=== PATIENT | male | born 1990 | race Caucasian/White ===

== ENCOUNTER 2018-08-07 16:40 | Emergency (ER) | payer MEDICAID ==
[2018-08-07] MEDS ORDERED: ALBUTEROL 3 ML DEYVIAL IH ONE ×2 (17:31→18:30)
[2018-08-07] MEDS ORDERED: predniSONE 20 MG TAB PO ONE (17:31)
--- NOTE | 2018-08-07 18:23 | EDPHY ---
H & P Stated Complaint: SOB, wheezing, body aches, chills Time Seen by Provider: 08/07/18 16:51 HPI/ROS: CHIEF COMPLAINT: Shortness of breath HISTORY OF PRESENT ILLNESS: 27-year-old male reports that after working with a significant amount of wood chips, dust, and mold today at work, he developed shortness of breath. He presents reporting generalized shortness of breath, no chest pain. Been feeling achy as well and feeling like he is having some chills. Had a similar episode 2 weeks ago, also proceeded by inhalation of dust from wood chips. Patient reports a prior history of asthma as a child which he outgrew the age of 9. Denies any preceding upper respiratory infection symptoms. No fever, chills, chest pain, palpitations, vomiting, diarrhea, urinary complaints, headache, lightheadedness. REVIEW OF SYSTEMS: A comprehensive 10 system review of systems was reviewed and is otherwise negative aside from elements mentioned in the history of present illness and medical decision making. PAST MEDICAL HISTORY: Childhood asthma. Bilateral pneumothoraces following trauma. SOCIAL HISTORY: Works as an retail leasing agent. Nonsmoker. VITAL SIGNS Reviewed by me. GENERAL: Well-developed, well-nourished, using accessory muscles to breathe. O2 sat noted to be 89-88%. HEENT: Atraumatic. Eyes: No icterus, no injection. Mouth: moist mucous membranes. No erythema or lesions. No uvular swelling or angioedema. Neck: supple with no adenopathy. No stridor. LUNGS: Diminished breath sounds bilaterally. Occasional wheeze in the right upper lobe. CARDIAC: Borderline tachycardia. No rubs murmurs gallops. ABDOMEN: Soft, nontender, nondistended, bowel sounds normal. BACK: No CVA tenderness. EXTREMITIES: No trauma. No edema. Range of motion is normal throughout. NEURO: Alert and oriented, grossly nonfocal. SKIN: Warm and dry, no urticaria or rash. PSYCHIATRIC: Normal mentation, no agitation. - Personal History Current Tetanus Diphtheria and Acellular Pertussis (TDAP): Unsure - Medical/Surgical History Hx Asthma: Yes Hx Chronic Respiratory Disease: No Hx Diabetes: No Hx Cardiac Disease: No Hx Renal Disease: No Hx Cirrhosis: No Hx Alcoholism: No Hx HIV/AIDS: No Hx Splenectomy or Spleen Trauma: No Other PMH: childhood asthma - Social History Smoking Status: Never smoked Constitutional: Initial Vital Signs Temperature (C) 37 C 08/07/18 16:45 Heart Rate 117 H 08/07/18 16:45 Respiratory Rate 18 08/07/18 16:45 Blood Pressure 118/88 H 08/07/18 16:45 O2 Sat (%) 92 08/07/18 16:45 O2 Delivery Mode Room Air Allergies/Adverse Reactions: No Known Allergies Allergy (Unverified 08/07/18 16:44) Home Medications: Medication Instructions Recorded Albuterol Hfa Anes Only [Proair 2 puffs IH QID #1 mdi 08/07/18 Hfa Icu (*)] Multivitamins 08/07/18 predniSONE 40 mg PO DAILY #6 tab 08/07/18 Medical Decision Making - Diagnostics Imaging Results: Chest X-Ray 08/07/18 17:32 Impression: Mild airways disease. Air trapping versus vigorous inspiration. ED Course/Re-evaluation: Albuterol neb administered. Prednisone 60 mg given. Chest x-ray without any signs of infiltrate, or pneumothorax. Increased lung volumes consistent with airways disease. Patient was reexamined after the neb. He reports significant improvement in his dyspnea. Improved air flow although still somewhat diminished. 2nd neb was given. Patient was discharged with meter dose inhaler, and prednisone. We discussed the possibilities of irritant related bronchospasm, bronchospasm triggered by upper respiratory infection, or chronic airways disease. Differential Diagnosis: Differential diagnosis for the patient's shortness of breath was considered including but not limited to pulmonary infectious processes, pulmonary irritant , asthma exacerbation, pneumonia, bronchitis, pulmonary emboli, pulmonary edema , congestive heart failure, and cardiac causes. - Data Points Medications Given: Discontinued Medications Albuterol (Proventil Neb) 3 ml IH EDNOW ONE Stop: 08/07/18 17:32 Last Admin: 08/07/18 17:42 Dose: 3 ml Albuterol (Proventil Neb) 3 ml IH EDNOW ONE Stop: 08/07/18 18:31 Last Admin: 08/07/18 18:33 Dose: 3 ml Prednisone (Prednisone) 60 mg PO EDNOW ONE Stop: 08/07/18 17:32 Last Admin: 08/07/18 17:42 Dose: 60 mg Departure - Departure Disposition: Home, Routine, Self-Care Clinical Impression: Dyspnea, Disease of airway Condition: Good Instructions: Reactive Airways Disease (ED), General Allergic Reaction (ED) Additional Instructions: Your shortness of breath this evening as well as several weeks ago may be related to airways disease in reaction to mold and dust. You been given an albuterol meter dose inhaler. Please use this as directed. You been given a prescription for prednisone. This will help with any inflammation. Please take this as directed. Please follow up with primary care physician. You been given a referral to Dr. Kirby. Please follow up with him or 1 of his prior partners. Referrals: NONE *PRIMARY CARE P,. [Primary Care Provider] - As per Instructions Mirza Kirby MD [Medical Doctor] - As per Instructions Prescriptions: Albuterol Hfa Anes Only [Proair Hfa Icu (*)] 2 puffs IH QID #1 mdi predniSONE 40 mg PO DAILY #6 tab
[2018-08-07] MEDS ORDERED: ALBUTEROL 3 ML DEYVIAL ONE (18:30)
[2018-08-07 18:52] VITALS: BP 128/72
== END 2018-08-07 18:53 | disposition home or self-care (01) ==
DX: R06.00 Dyspnea, unspecified (principal); J45.909 Unspecified asthma, uncomplicated
CPT/HCPCS: J7512; J7613